=== PATIENT | male | born 1990 | race Caucasian/White ===

== ENCOUNTER 2016-05-18 09:59 | Emergency (ER) | payer OTHER ==
--- NOTE | ~2016-05-18 | CT2 ---
[facility] A Service [facility] RADIOLOGY TEXT RESULTS PATIENT: RABIA LIN LOCATION: [facility] : [birth year] UNIT #: [id number] AGE: [address]: Kristie Agarwal MD SEX: M ORDER DR: [id number] [address] [address] [id number] E MR#: [id number] Acc #: [id number] NAME: RABIA LIN : 1990 SEX: M STUDY DATE/TIME: 05/18/2016 11:49 UNIT: [facility] ROOM: STUDY DESCRIPTION: CT Abd and Pelv W Cont Attending Physician: Kristie Agarwal M.D. Ordering Physician: Kristie Agarwal M.D. Primary Care Physician: Primary Care Physician No MEDICAL IMAGING REPORT This report is preliminary unless electronic signature is present EXAM CT abdomen and pelvis INDICATIONS Diarrhea. Mucus in the stool. TECHNIQUE CT of the abdomen and pelvis utilizing 100 mL Isovue-370 IV contrast. Coronal and sagittal reconstructions were obtained. This CT exam was performed with one or more of the following radiation dose reduction techniques: automatic control, adjustment of mA and/or kV according to patient size, and iterative reconstruction. COMPARISON CT abdomen and pelvis dated 05/12/2015. FINDINGS ABDOMEN: The solid abdominal organs enhance normally. The gallbladder is not distended. The bowel is not dilated. The appendix is normal. No enlarged retroperitoneal or mesenteric lymph nodes. The abdominal aorta is normal in caliber. PELVIS: Bladder is unremarkable. No enlarged pelvic or inguinal lymph nodes. No acute osseous abnormalities. IMPRESSION 1. Negative CT of the abdomen and pelvis. Dictated by... Jorden Ward M.D. [facility] A Service [facility] RADIOLOGY TEXT RESULTS PATIENT: RABIA LIN LOCATION: [facility] : [birth year] UNIT #: [id number] AGE: [address]: Kristie Agarwal MD SEX: M ORDER DR: THIS IS AN ELECTRONICALLY VERIFIED REPORT Jorden Ward M.D. at 05/19/2016 8:17 AM RHONDA/abi TD: 05/18/2016 14:14 JOB #: [id number] MEDICAL IMAGING REPORT COPY
[2016-05-18 10:49] LABS: URINE SOURCE CLEAN CATCH
[2016-05-18 10:53] LABS: BASOPHIL% 0.6 % (0-2.5); EOSINOPHIL% 0.7 % (0.0-7.0); HEMATOCRIT 44.2 % (38.0-50.0); HEMOGLOBIN 15.2 gm/dL (13.0-16.0); LYMPHOCYTE# 1.3 X10e3 (1.0-3.5); LYMPHOCYTE% 29.4 % (17.0-45.0); MEAN CELL VOLUME 95.3 FL (83-96); MEAN CORPUSCULAR HEMOGLOBIN 32.8 PG (28-34); MEAN CORPUSCULAR HGB CONC 34.4 g/dL (30-36); MEAN PLATELET VOLUME 8.7 FL (6.5-11.5); MONOCYTE# 0.5 X10e3 (0-1.0); MONOCYTE% 11.6 % (3.0-12.0); NEUTROPHIL# 2.7 X10e3 (1.5-7.1); NEUTROPHIL% 57.7 % (40-75); PLATELET COUNT 166 X10e3 (140-420); RED BLOOD COUNT 4.64 X10e (3.90-5.60); RED CELL DISTRIBUTION WIDTH 12.9 % (11.0-15.5); WHITE BLOOD COUNT 4.6 X10e3 (4.0-10.5)
[2016-05-18 10:56] LABS: URINE APPEARANCE CLEAR; URINE BILIRUBIN NEG (NEG); URINE BLOOD NEG (NEG); URINE COLOR YELLOW; URINE GLUCOSE NEG (NEG); URINE KETONE TRACE (NEG); URINE LEUKOCYTE ESTERASE TRACE (NEG); URINE NITRATE NEG (NEG); URINE PROTEIN NEG (NEG); URINE SPECIFIC GRAVITY 1.028 (1.003-1.035)
[2016-05-18 10:57] LABS: DIFF IND NO
[2016-05-18 10:59] LABS: URBCS1 AUWI 0-2 /[HPF] (0-2); URINE BACTERIA AUWI NEG (NEGATIVE); URINE SQUAMOUS EPITHELIAL CELL NONE SEEN /[HPF]; UWBCS1 AUWI 0-2 (0-5)
[2016-05-18 11:03] LABS: CULTURE INDICATED? NO
[2016-05-18 11:23] LABS: ALBUMIN SERUM 3.9 g/dL (3.5-5.0); ALKALINE PHOSPHATASE 71 U/L (32-92); ALT (SGPT) 18 U/L (10-40); AMYLASE 31 U/L (0-46); AST (SGOT) 20 U/L (10-42); BILIRUBIN, DIRECT 0.1 mg/dL (0.0-0.2); BILIRUBIN,INDIRECT 0.5 mg/dL (0.0-0.9); BILIRUBIN,TOTAL 0.6 mg/dL (0.2-2.0); BLOOD UREA NITROGEN 12 mg/dL (9-23); CARBON DIOXIDE 25 mmol/L (22-31); CHLORIDE 104 mmol/L (100-111); CREATININE SERUM 1.1 mg/dL (0.6-1.4); GLOM FILT RATE Estimated ABOVE60 mL/min (>60); GLUCOSE FASTING 95 mg/dL (70-110); LIPASE 12 U/L (22-51); POTASSIUM 3.8 mmol/L (3.5-5.1); PROTEIN TOTAL SERUM 7.4 g/dL (6.0-8.3); SODIUM 138 mmol/L (135-145)
[2016-05-20 20:06] LABS: CHLAMYDIA TRACH Not Detected (Not Detected); N GONOR Not Detected (Not Detected)
== END 2016-05-18 13:41 | disposition home or self-care (01) ==
LOC: CED 09:59
PROVIDERS: Student in an Organized Health Care Education/Training Program
DX: R10.9 Unspecified abdominal pain (principal); R51 Headache; R30.0 Dysuria; Z98.890 Other specified postprocedural states; F17.200 Nicotine dependence, unspecified, uncomplicated
CPT/HCPCS: 36415; 74177; 80048; 80076; 81003; 82150; 83690; 85025; 87491; 87591; 96374; 96375; 99284; J0696; J2405; Q9967

== ENCOUNTER 2016-07-08 03:52 | Emergency (ER) | payer OTHER | END 2016-07-08 04:18 | disposition home or self-care (01) | LOC: CED 03:52 | DX: L03.116 Cellulitis of left lower limb (principal); K21.9 Gastro-esophageal reflux disease without esophagitis; F17.210 Nicotine dependence, cigarettes, uncomplicated | CPT/HCPCS: 96372; 99283; J1885 ==